=== PATIENT | female | born 1995 | race Caucasian/White ===

== ENCOUNTER 2022-03-28 07:40 | Emergency (ER) | payer OTHER ==
[~2022-03-28] VITALS: Ht 160 cm; Wt 71.8 kg
[2022-03-28] MEDS ORDERED: IBUP-1114 PO (07:46)
[2022-03-28 08:53] VITALS: BP 130/69
== END 2022-03-28 08:54 | disposition home or self-care (01) ==
LOC: M ED 07:40
DX: S89.92XA Unspecified injury of left lower leg, initial encounter (principal); M25.462 Effusion, left knee; W19.XXXA Unspecified fall, initial encounter; Y92.9 Unspecified place or not applicable; Y93.9 Activity, unspecified; Y99.1 Military activity